=== PATIENT | female | born 1990 | race Caucasian/White ===

== ENCOUNTER 2024-10-26 17:37 | Emergency (ER) | payer MEDICAID ==
[~2024-10-26] VITALS: Ht 165.1 cm; Wt 87.0 kg
[2024-10-26 17:43] VITALS: O2SAT 99
[2024-10-26] MEDS: KETOROLAC 15MG/ML VIAL IM ONE (22:11)
[2024-10-26] MEDS ORDERED: LIDO-53 TP (22:15)
[2024-10-26] MEDS ORDERED: NAPR-1176 MT (22:15)
[2024-10-26 23:06] VITALS: BP 122/81; PULSE 74; RESP 20; TEMP 36.8; O2SAT 100
== END 2024-10-26 23:10 | disposition home or self-care (01) ==
LOC: ER 17:37
DX: S20.219A Contusion of unspecified front wall of thorax, initial encounter (principal); E11.9 Type 2 diabetes mellitus without complications; Z88.8 Allergy status to other drugs, medicaments and biological substances; Z88.5 Allergy status to narcotic agent; Z88.1 Allergy status to other antibiotic agents; Z79.899 Other long term (current) drug therapy; Z86.59 Personal history of other mental and behavioral disorders; W22.10XA Striking against or struck by unspecified automobile airbag, initial encounter; Y93.89 Activity, other specified; Y92.89 Other specified places as the place of occurrence of the external cause; Y99.8 Other external cause status
CPT/HCPCS: 99284; 71045; 81025; 73630; 96372; J1885